=== PATIENT | male | born 1940 | race Caucasian/White ===

== ENCOUNTER 2016-09-19 10:23 | Inpatient (IN) | payer OTHER ==
[~2016-09-19] VITALS: Ht 180.3 cm; Wt 79.9 kg
[~2016-09-19 10:23] MED LIST: ASPIR 8181 M1 PO; DAILY MULTIPLE1 EACH PO; LEVAQUIN500 MG PO; LEVOTHYROXINE100 MCG PO; LISINOPRIL20 MG PO; LOVASTATIN20 MG PO
[2016-09-19 11:23] LABS: MCH 29.7 PG (29.0-34.0); MCHC 33.6 G/DL (30.0-36.0); MCV 88.2 FL (86-99); MEAN PLAT.VOLUME 8.9 uM^3 (9.0-12.4); PLATELET COUNT 181 K/uL (156-360); RBC DIS.WIDTH-CV 12.8 % (11.8-14.6); RBC DIS.WIDTH-SD 41.3 % (39-53); RED BLOOD COUNT 4.08 M/uL (4.00-5.50); WHITE BLOOD COUNT 21.2 K/uL (4.1-10.2)
[2016-09-19 11:32] LABS: CHLORIDE 99 mEq/L (99-109); POTASSIUM 4.7 mEq/L (3.7-5.4); SODIUM 133 mEq/L (136-147)
[2016-09-19 11:34] LABS: GLUCOSE 133 mg/dL (70-99)
[2016-09-19 11:35] LABS: ANION GAP 9 MEQ/L (2-14)
[2016-09-19 11:36] LABS: TOTAL BILIRUBIN 0.5 mg/dL (0.0-1.0)
[2016-09-19 11:38] LABS: ALKALINE PHOSPHATASE 61 IU/L (3-129); GFR ESTIMATE (CALCULATED) 33 mL/min/
[2016-09-19 11:39] LABS: UREA NITROGEN (BUN) 46 mg/dL (9-23)
[2016-09-19 11:40] LABS: DIRECT BILIRUBIN 0.2 mg/dL (0.0-0.3)
[2016-09-19 11:41] LABS: LIPASE 11 U/L (1.0-51.0)
[2016-09-19 12:03] LABS: ABS NEUTROPHIL COUNT 18.8; BAND NEUTROPHILS 6.1 % (0-8.0); EOSINOPHIL ABS CT 0; HEMATOLOGY COMMENT 1 SN; INSTRUMENT ABS NEUTROPHIL CT 18.3 K/uL; LYMPHOCYTES 4.3 % (15.0-45.0); PLAT.SUFFICIENCY ADEQUATE; POIKILOCYTOSIS 1+; SEG.NEUTROPHILS 82.6 % (46.0-76.0)
[2016-09-19 13:23] LABS: ADD MIUA? YES; BILIRUBIN NEGATIVE; BLOOD LARGE; COLOR AMBER ((YELLOW)); GLUCOSE (STRIP) NEGATIVE; KETONES NEGATIVE; LEUKOCYTES MODERATE; NITRITE NEGATIVE; PROTEIN (STRIP) 100; SPECIFIC GRAVITY 1.015 (1.000-1.030); UROBILINOGEN 0.2 MG/DL (0.2-1.0)
[2016-09-19 13:43] LABS: BACTERIA NONE SEEN /HPF; EPITHELIAL CELLS RARE /HPF; HYALINE CASTS 15-20 /LPF; MUCUS TRACE /LPF; RED BLOOD CELLS TNTC /HPF (0-5); UCUL ADDED? NO; WHITE BLOOD CELLS 20-30 /HPF (0-5)
[2016-09-19] MEDS ORDERED: LISINOPRIL10 MG PO (15:06)
[2016-09-19] MEDS ORDERED: FLUOXETINE HCL10 MG PO (15:07)
[2016-09-19 17:02] VITALS: BP 120/87
[2016-09-19 21:00] VITALS: BP 137/62
[2016-09-20] VITALS (12 sets, daily range): BP systolic 86–128; BP diastolic 47–62
[2016-09-20 07:01] LABS: HEMATOCRIT 36.2 % (38.0-50.0); MCHC 33.7 G/DL (30.0-36.0); MCV 89.2 FL (86-99); MEAN PLAT.VOLUME 9.1 uM^3 (9.0-12.4); PLATELET COUNT 210 K/uL (156-360); RBC DIS.WIDTH-SD 42.7 % (39-53); RED BLOOD COUNT 4.06 M/uL (4.00-5.50); WHITE BLOOD COUNT 18.1 K/uL (4.1-10.2)
[2016-09-20 07:14] LABS: ANION GAP 9 MEQ/L (2-14); CHLORIDE 101 MEQ/L (99-109); GFR ESTIMATE (CALCULATED) 45 mL/min/; GLUCOSE 125 mg/dL (70-99); POTASSIUM 4.5 MEQ/L (3.7-5.4); SAMPLE HEMOLYSIS CHECK 0; SAMPLE ICTERIC CHECK 0; SAMPLE LIPEMIA CHECK 0; SODIUM 134 MEQ/L (136-147); UREA NITROGEN (BUN) 47 mg/dL (9-23)
[2016-09-20 07:34] LABS: ABS NEUTROPHIL COUNT 15.9; BAND NEUTROPHILS 2.6 % (0-8.0); BURR CELLS 1+; EOSINOPHIL ABS CT 0.2; EOSINOPHILS 0.9 % (0-5.0); INSTRUMENT ABS NEUTROPHIL CT 15.8 K/uL; LYMPHOCYTES 5.2 % (15.0-45.0); OVALOCYTES 1+; PLAT.SUFFICIENCY ADEQUATE; POIKILOCYTOSIS 1+; SEG.NEUTROPHILS 85.2 % (46.0-76.0)
[2016-09-20 14:28] LABS: HEMATOCRIT 32.9 % (38.0-50.0); MCH 30.2 PG (29.0-34.0); MCHC 33.7 G/DL (30.0-36.0); MCV 89.4 FL (86-99); PLATELET COUNT 170 K/uL (156-360); RBC DIS.WIDTH-CV 13.1 % (11.8-14.6); RBC DIS.WIDTH-SD 43.4 % (39-53); RED BLOOD COUNT 3.68 M/uL (4.00-5.50); WHITE BLOOD COUNT 13.1 K/uL (4.1-10.2)
[2016-09-20 14:44] LABS: ANION GAP 7 MEQ/L (2-14); CHLORIDE 106 MEQ/L (99-109); MAGNESIUM 1.9 mg/dl (1.3-2.7); SAMPLE HEMOLYSIS CHECK 0; SAMPLE ICTERIC CHECK 0; SAMPLE LIPEMIA CHECK 0; SODIUM 136 MEQ/L (136-147)
[2016-09-20 14:49] LABS: GFR ESTIMATE (CALCULATED) > 59 mL/min/; GLUCOSE 102 mg/dL (70-99); UREA NITROGEN (BUN) 38 mg/dL (9-23)
[2016-09-20 14:49] LABS: METH RESISTANT S AUREUS PCR NEGATIVE (NEGATIVE)
[2016-09-20 15:05] LABS: PROBE CHECK PASS; SPECIMEN PROCESSING CONTROL PASS
[2016-09-20 16:22] LABS: EOSINOPHIL (%) 1.1 % (0-5); EOSINOPHIL COUNT 0.1 K/uL (0-0.3); IMMATURE GRANULOCYTE (%) 1.5 % (0.0-0.7); IMMATURE GRANULOCYTE COUNT 0.2 K/uL; LYMPHOCYTE COUNT 0.7 K/uL (1.0-2.8); MONOCYTE (%) 7.7 % (3-12)
[2016-09-21 06:20] LABS: HEMATOCRIT 33.4 % (38.0-50.0); MCH 29.4 PG (29.0-34.0); MCHC 33.2 G/DL (30.0-36.0); MCV 88.6 FL (86-99); MEAN PLAT.VOLUME 9.3 uM^3 (9.0-12.4); PLATELET COUNT 206 K/uL (156-360); RBC DIS.WIDTH-CV 13.3 % (11.8-14.6); RBC DIS.WIDTH-SD 43.7 % (39-53); RED BLOOD COUNT 3.77 M/uL (4.00-5.50); WHITE BLOOD COUNT 13.6 K/uL (4.1-10.2)
[2016-09-21 06:49] LABS: ANION GAP 9 MEQ/L (2-14); CHLORIDE 105 MEQ/L (99-109); GFR ESTIMATE (CALCULATED) > 59 mL/min/; GLUCOSE 111 mg/dL (70-99); POTASSIUM 4.4 MEQ/L (3.7-5.4); SAMPLE HEMOLYSIS CHECK 0; SAMPLE ICTERIC CHECK 0; SAMPLE LIPEMIA CHECK 0; SODIUM 137 MEQ/L (136-147); UREA NITROGEN (BUN) 24 mg/dL (9-23)
[2016-09-21 07:20] LABS: EOSINOPHIL (%) 1.2 % (0-5); EOSINOPHIL COUNT 0.2 K/uL (0-0.3); IMMATURE GRANULOCYTE (%) 1.4 % (0.0-0.7); IMMATURE GRANULOCYTE COUNT 0.2 K/uL; INSTRUMENT ABS NEUTROPHIL CT 11.1 K/uL; LYMPHOCYTE COUNT 0.9 K/uL (1.0-2.8); MONOCYTE (%) 9.2 % (3-12); MONOCYTE COUNT 1.3 K/uL (0-0.8); NEUTROPHIL (%) 81.4 % (45-76); NEUTROPHIL COUNT 11.1 K/uL (1.8-6.4)
[2016-09-21 07:34] VITALS: BP 101/54
[2016-09-21 16:15] VITALS: BP 106/57
[2016-09-21 23:29] VITALS: BP 108/54
[2016-09-22 06:40] LABS: HEMATOCRIT 30.4 % (38.0-50.0); MCH 29.8 PG (29.0-34.0); MCHC 33.9 G/DL (30.0-36.0); MCV 87.9 FL (86-99); PLATELET COUNT 226 K/uL (156-360); RBC DIS.WIDTH-CV 13.4 % (11.8-14.6); RBC DIS.WIDTH-SD 43.4 % (39-53); RED BLOOD COUNT 3.46 M/uL (4.00-5.50); WHITE BLOOD COUNT 11.6 K/uL (4.1-10.2)
[2016-09-22 06:58] VITALS: BP 122/56
[2016-09-22 07:02] LABS: ANION GAP 5 MEQ/L (2-14); CHLORIDE 107 MEQ/L (99-109); GFR ESTIMATE (CALCULATED) > 59 mL/min/; GLUCOSE 117 mg/dL (70-99); POTASSIUM 4.3 MEQ/L (3.7-5.4); SAMPLE HEMOLYSIS CHECK 0; SAMPLE ICTERIC CHECK 0; SAMPLE LIPEMIA CHECK 0; SODIUM 138 MEQ/L (136-147); UREA NITROGEN (BUN) 16 mg/dL (9-23)
[2016-09-22 07:16] LABS: ABS NEUTROPHIL COUNT 10.2; ANISOCYTOSIS 1+; EOSINOPHIL ABS CT 0.1; EOSINOPHILS 0.9 % (0-5.0); INSTRUMENT ABS NEUTROPHIL CT 9.2 K/uL; LYMPHOCYTES 3.5 % (15.0-45.0); PLAT.SUFFICIENCY ADEQUATE; POIKILOCYTOSIS 1+; SEG.NEUTROPHILS 87.7 % (46.0-76.0)
[2016-09-22] MEDS ORDERED: OXYCODONE HCL5 MG PO (09:44)
[2016-09-22] MEDS ORDERED: AUGMENTIN875 MG PO (09:47)
[2016-09-22 10:15] VITALS: BP 142/88
== END 2016-09-22 13:38 | disposition home or self-care (01) | DRG 690 ==
LOC: EME 10:23 → 5EAST 14:11 → EDOF 14:11 → 5EAST 16:37 → 4WEST 09-20 13:18 → 5EAST 09-20 23:51
PROVIDERS: Internal Medicine Nephrology; Personal Emergency Response Attendant; Physician Assistant; Physician Assistant Medical
PROC: 0T768DZ Dilation of Right Ureter with Intraluminal Device, Via Natural or Artificial Opening Endoscopic (ICD-10-PCS; principal; 2016-09-20)
DX: N13.6 Pyonephrosis (principal); N20.2 Calculus of kidney with calculus of ureter; N17.9 Acute kidney failure, unspecified; I95.9 Hypotension, unspecified; I10 Essential (primary) hypertension; E78.5 Hyperlipidemia, unspecified; E87.1 Hypo-osmolality and hyponatremia; N28.1 Cyst of kidney, acquired; E03.9 Hypothyroidism, unspecified; F32.9 Major depressive disorder, single episode, unspecified; Z79.82 Long term (current) use of aspirin; Z87.440 Personal history of urinary (tract) infections; Z87.442 Personal history of urinary calculi; Z87.891 Personal history of nicotine dependence; Z90.79 Acquired absence of other genital organ(s)
CPT/HCPCS: 71020; 74000; 74176; 80048; 80048 91; 80069; 80076; 81003; 83605; 83690; 83735; 84100; 85025; 85025 91; 87040; 87086; 87641; 94799; 99281; 99285; C1758; C1769; C1876; J0696; J1644; J2250; J2270; J2405; J2543; J3010; J7030; J7050; J7120; P9045

== ENCOUNTER 2016-10-04 10:02 | Day surgery (SDC) | payer OTHER ==
[~2016-10-04] VITALS: Ht 182.9 cm; Wt 77.2 kg
[~2016-10-04 10:02] MED LIST changes: +AUGMENTIN875 MG PO; +FLUOXETINE HCL10 MG PO; +LISINOPRIL10 MG PO; +OXYCODONE HCL5 MG PO
[2016-10-04 10:55] VITALS: BP 118/61
[2016-10-04 14:38] VITALS: BP 126/67
[2016-10-04 15:15] VITALS: BP 128/67
== END 2016-10-04 15:20 | disposition home or self-care (01) ==
LOC: SDC 10:02
PROVIDERS: Urology
DX: N20.2 Calculus of kidney with calculus of ureter (principal); I10 Essential (primary) hypertension; E03.9 Hypothyroidism, unspecified; N40.0 Benign prostatic hyperplasia without lower urinary tract symptoms; Z87.891 Personal history of nicotine dependence; Z79.82 Long term (current) use of aspirin
CPT/HCPCS: 82365 90; C1876; J0690; J1100; J1580; J1885; J2405; J3010